=== PATIENT | female | born 2000 | race Caucasian/White ===

== ENCOUNTER 2020-10-28 11:44 | Inpatient (IN) | payer OTHER ==
[~2020-10-28] VITALS: Ht 152.4 cm; Wt 84.4 kg
[2020-10-28] MEDS: LACTATED RINGERS 1,000 ML IV SCH (13:29)
[2020-10-28 14:29] LABS: BASOPHILS % 0.7 % (0.0-2.0); EOSINOPHILS % 0.6 % (0.0-5.0); HEMATOCRIT. 35.9 % (36.0-48.0); LYMPHOCYTES % 16.8 % (20.0-50.0); MEAN CORPUSCULAR HEMOGLOBIN 28.3 pg (28.0-32.0); MEAN CORPUSCULAR VOLUME 85.1 fL (81.0-99.0); MEAN PLATELET VOLUME 10.3 fl (7.4-10.4); MONOCYTES % 4.1 % (2.0-8.0); NEUTROPHILS % 77.8 % (40.0-76.0); PLATELET 197 x1000/uL (130-400); RED BLOOD CELL COUNT 4.23 mill/uL (4.2-5.4); RED CELL DISTRIBUTION WIDTH 13.1 % (11.6-14.6)
[2020-10-28 14:39] LABS: CLARITY URINE CLOUDY (CLEAR); COLOR URINE YELLOW (YELLOW); KETONES URINE NEGATIVE (NEGATIVE); LEUKOCYTE ESTERASE URINE 1+ (NEGATIVE); NITRITE URINE NEGATIVE (NEGATIVE); OCCULT BLOOD URINE TRACE (NEGATIVE); PROTEIN URINE 2+ (NEGATIVE); SPECIFIC GRAVITY URINE 1.023 (1.005-1.030)
[2020-10-28 14:40] LABS: CHLORIDE 106 mEq/L (98-107)
[2020-10-28 14:43] LABS: D-DIMER 2.2 mg/L FEU (<0.50); PARTIAL THROMBOPLASTIN TIME 26.5 sec (23.4-31.0); PROTHROMBIN TIME 10.3 sec (9.6-11.0)
[2020-10-28] MEDS ORDERED: LABETALOL HCL 5MG/ML VIAL 20ML IV PRN ×2 (14:45)
[2020-10-28 14:57] LABS: *AMPHETAMINES SCREEN URINE NEGATIVE (NEGATIVE); *BARBITURATES SCREEN URINE NEGATIVE (NEGATIVE); *BENZODIAZEPINES SCREEN URINE NEGATIVE (NEGATIVE); *COCAINE SCREEN URINE NEGATIVE (NEGATIVE)
[2020-10-28 14:58] LABS: CANNABINOID URINE SCREEN NEGATIVE (NEGATIVE); METHADONE URINE SCREEN NEGATIVE (NEGATIVE); OPIATES URINE SCREEN NEGATIVE (NEGATIVE); PHENCYCLIDINE URINE SCREEN NEGATIVE (NEGATIVE)
[2020-10-28] MEDS ORDERED: DEXT 5%/LR + PITOCIN 20UNITS/L 1,000 ML IV SCH (15:00)
[2020-10-28] MEDS ORDERED: MISOPROSTOL 200MCG TABLET VG SCH (15:00)
[2020-10-28] MEDS ORDERED: METHYLERGONOVINE MALEATE 0.2 MG/ML IM PRN (15:00)
[2020-10-28] MEDS ORDERED: CARBOPROST TROMETHAMINE 250 MCG/ML AMPUL IM PRN (15:00)
[2020-10-28] MEDS ORDERED: NALOXONE HCL 0.4 MG/ML 1ML VIAL IM PRN (15:00)
[2020-10-28] MEDS ORDERED: LACTATED RINGERS 1,000 ML IV SCH (15:00)
[2020-10-28] MEDS ORDERED: CITRIC ACID/SODIUM CITRATE SOLN 30ML UDC PO NR (15:00)
[2020-10-28] MEDS ORDERED: MORPHINE SULFATE/PF 1MG/ML 10ML AMP ONE (15:06)
[2020-10-28] MEDS ORDERED: EPHEDRINE SULFATE 50MG/ML VIAL ONE (15:06)
[2020-10-28] MEDS ORDERED: FENTANYL CITRATE/PF 50MCG/ML 2ML VIAL ONE (15:06)
[2020-10-28] MEDS ORDERED: ONDANSETRON HCL 4MG/2ML INJ ONE (15:06)
[2020-10-28] MEDS ORDERED: CEFAZOLIN SODIUM 1000MG/VIAL ONE (15:06)
[2020-10-28] MEDS ORDERED: OXYTOCIN 10 UNITS/ML 1ML ONE (15:06)
[2020-10-28 15:13] LABS: HEPATITIS B SURFACE ANTIGEN NEGATIVE
[2020-10-28] MEDS: MAGNESIUM 20 G PREMIX (L & D) 500 ML IV SCH (18:34)
[2020-10-28] MEDS ORDERED: MAGNESIUM 2 G PREMIX 50 ML IV NR (19:00)
[2020-10-28] MEDS ORDERED: DIPHENHYDRAMINE 50MG/ML VIAL ONE (19:25)
[2020-10-28] MEDS ORDERED: GLYCOPYRROLATE 0.2 MG/ML 2ML VIAL ONE (19:48)
[2020-10-28] MEDS ORDERED: KETOROLAC 60MG/2ML VIAL IM ONE (19:58)
[2020-10-28] MEDS ORDERED: DIPHENHYDRAMINE 50MG/ML VIAL IV PRN (20:00)
[2020-10-28] MEDS ORDERED: NALOXONE HCL 0.4 MG/ML 1ML VIAL IV PRN (20:00)
[2020-10-28] MEDS ORDERED: BUTORPHANOL TARTRATE 2 MG/ML VIAL IV PRN (20:00)
[2020-10-28] MEDS ORDERED: RHO(D) IMMUNE GLOBULIN 300 MCG/SYR IM PRN (20:30)
[2020-10-28] MEDS ORDERED: HYDROCODONE/ACETAMINOPHEN 5/325MG TABLET PO PRN (20:30)
[2020-10-28] MEDS ORDERED: IBUPROFEN 400MG TABLET PO PRN (20:30)
[2020-10-28] MEDS ORDERED: KETOROLAC 30MG/ML VIAL IV PRN (20:30)
[2020-10-28] MEDS ORDERED: BISACODYL 10MG SUPP PR PRN (20:30)
[2020-10-28] MEDS: DEXT 5%/LR + PITOCIN 20UNITS/L 1,000 ML IV SCH (20:30)
[2020-10-29] VITALS (10 sets, daily range): BP systolic 120–152; BP diastolic 72–93
[2020-10-29] MEDS: KETOROLAC 30MG/ML VIAL IV SCH ×3 (05:49→18:41)
[2020-10-29] MEDS: DEXT 5%/LR + PITOCIN 20UNITS/L 1,000 ML IV SCH (05:52)
[2020-10-29 09:08] LABS: BASOPHILS % 0.2 % (0.0-2.0); EOSINOPHILS % 0.2 % (0.0-5.0); HEMATOCRIT. 31.8 % (36.0-48.0); HEMOGLOBIN. 10.7 g/dL (12.0-16.0); LYMPHOCYTES % 7.7 % (20.0-50.0); MEAN CORPUSCULAR HEMOGLOBIN 28.5 pg (28.0-32.0); MEAN CORPUSCULAR VOLUME 84.8 fL (81.0-99.0); MEAN PLATELET VOLUME 9.7 fl (7.4-10.4); MONOCYTES % 4.3 % (2.0-8.0); NEUTROPHILS % 87.6 % (40.0-76.0); PLATELET 189 x1000/uL (130-400); RED BLOOD CELL COUNT 3.74 mill/uL (4.2-5.4); RED CELL DISTRIBUTION WIDTH 13.4 % (11.6-14.6)
[2020-10-29] MEDS: FERROUS SULFATE 325MG TABLET PO SCH ×2 (09:42→12:07)
[2020-10-29] MEDS: PRENATAL VIT/FE FUMARATE/FA TABLET PO SCH (09:43)
[2020-10-29] MEDS: MAGNESIUM 20 G PREMIX (L & D) 500 ML IV SCH (13:26)
[2020-10-30 03:00] VITALS: BP 135/92
[2020-10-30 07:40] LABS: BASOPHILS % 0.1 % (0.0-2.0); EOSINOPHILS % 1.3 % (0.0-5.0); HEMATOCRIT. 30.2 % (36.0-48.0); HEMOGLOBIN. 10.7 g/dL (12.0-16.0); LYMPHOCYTES % 9.2 % (20.0-50.0); MEAN CORPUSCULAR HEMOGLOBIN 29.4 pg (28.0-32.0); MEAN CORPUSCULAR VOLUME 83.5 fL (81.0-99.0); MEAN PLATELET VOLUME 9.3 fl (7.4-10.4); MONOCYTES % 3.5 % (2.0-8.0); NEUTROPHILS % 85.9 % (40.0-76.0); PLATELET 200 x1000/uL (130-400); RED BLOOD CELL COUNT 3.62 mill/uL (4.2-5.4); RED CELL DISTRIBUTION WIDTH 13.7 % (11.6-14.6)
[2020-10-30 08:00] VITALS: BP 137/88
[2020-10-30 12:00] VITALS: BP 128/90
[2020-10-30 16:00] VITALS: BP 134/92
[2020-10-30] MEDS ORDERED: GENTAMICIN 120MG PREMIX 100 ML IV SCH (16:30)
[2020-10-30 19:30] VITALS: BP 124/86
[2020-10-30] MEDS: LACTATED RINGERS 1,000 ML IV SCH (19:56)
[2020-10-30] MEDS: CLINDAMYCIN 900 MG in DEXTROSE 5% WATER 50 ML IV SCH (19:57)
[2020-10-30] MEDS: GENTAMICIN 120MG PREMIX 100 ML IV SCH (21:03)
[2020-10-30] MEDS: IBUPROFEN 800MG TABLET PO PRN (21:29)
[2020-10-31] VITALS (7 sets, daily range): BP systolic 134–156; BP diastolic 88–100
[2020-10-31] MEDS ORDERED: LACTATED RINGERS 1,000 ML IV SCH (02:00)
[2020-10-31] MEDS: CLINDAMYCIN 900 MG in DEXTROSE 5% WATER 50 ML IV SCH ×3 (04:00→22:28)
[2020-10-31] MEDS ORDERED: NALOXONE HCL 0.4MG/ML VIAL IV PRN (08:00)
[2020-10-31] MEDS: GENTAMICIN 120MG PREMIX 100 ML IV SCH ×2 (08:46→20:31)
[2020-10-31 09:12] LABS: BASOPHILS % 0.2 % (0.0-2.0); EOSINOPHILS % 1.3 % (0.0-5.0); HEMATOCRIT. 30.7 % (36.0-48.0); HEMOGLOBIN. 10.3 g/dL (12.0-16.0); LYMPHOCYTES % 11.9 % (20.0-50.0); MEAN CORPUSCULAR HEMOGLOBIN 29.1 pg (28.0-32.0); MEAN CORPUSCULAR VOLUME 86.9 fL (81.0-99.0); MEAN PLATELET VOLUME 9.2 fl (7.4-10.4); MONOCYTES % 4.3 % (2.0-8.0); NEUTROPHILS % 82.3 % (40.0-76.0); PLATELET 215 x1000/uL (130-400); RED BLOOD CELL COUNT 3.53 mill/uL (4.2-5.4); RED CELL DISTRIBUTION WIDTH 13.9 % (11.6-14.6)
[2020-10-31] MEDS ORDERED: IBUP-2030 MT (09:12)
[2020-10-31] MEDS ORDERED: MEASLES,MUMPS&RUBELLA VACCINE 1 VIAL SUBCUT ONE (10:00)
[2020-10-31] MEDS: FERROUS SULFATE 325MG TABLET PO SCH ×3 (10:13→18:05)
[2020-10-31] MEDS: PRENATAL VIT/FE FUMARATE/FA TABLET PO SCH (10:13)
[2020-10-31] MEDS: IBUPROFEN 800MG TABLET PO PRN (10:14)
[2020-10-31] MEDS: LABETALOL HCL 200MG TABLET PO SCH (13:16)
[2020-11-01] VITALS: BP 136/96
[2020-11-01] MEDS: LABETALOL HCL 200MG TABLET PO SCH (01:52)
[2020-11-01 03:52] LABS: CHLORIDE 109 mEq/L (98-107)
[2020-11-01 03:55] LABS: BASOPHILS % 0.1 % (0.0-2.0); EOSINOPHILS % 1.8 % (0.0-5.0); HEMATOCRIT. 30.8 % (36.0-48.0); HEMOGLOBIN. 10.5 g/dL (12.0-16.0); MEAN CORPUSCULAR VOLUME 84.8 fL (81.0-99.0); MEAN PLATELET VOLUME 8.9 fl (7.4-10.4); MONOCYTES % 3.7 % (2.0-8.0); NEUTROPHILS % 82.4 % (40.0-76.0); PLATELET 276 x1000/uL (130-400); RED BLOOD CELL COUNT 3.63 mill/uL (4.2-5.4); RED CELL DISTRIBUTION WIDTH 13.4 % (11.6-14.6)
[2020-11-01 04:00] LABS: GENTAMICIN RANDOM 0.6 ug/mL
[2020-11-01 04:09] VITALS: BP 138/97
[2020-11-01 07:30] VITALS: BP 144/95
[2020-11-01] MEDS: CLINDAMYCIN 900 MG in DEXTROSE 5% WATER 50 ML IV SCH (08:38)
[2020-11-01] MEDS ORDERED: GENTAMICIN 100MG PREMIX 50 ML IV SCH (12:00)
== END 2020-11-01 14:00 | disposition home or self-care (01) | DRG 540 ==
LOC: 8 EST LDRP 11:44 → OBSVTOIN 11:44 → 8EST 10-29 00:38
PROVIDERS: ADMIT Obstetrics & Gynecology; ATTEND Obstetrics & Gynecology
PROC: 10D00Z1 Extraction of Products of Conception, Low, Open Approach (ICD-10-PCS; principal; 2020-10-28)
DX: O13.4 Gestational [pregnancy-induced] hypertension without significant proteinuria, complicating childbirth (principal); O75.2 Pyrexia during labor, not elsewhere classified; O14.94 Unspecified pre-eclampsia, complicating childbirth; O34.211 Maternal care for low transverse scar from previous cesarean delivery; Z3A.36 36 weeks gestation of pregnancy; Z37.0 Single live birth
CPT/HCPCS: 36415; 80048; 80053; 80170; 80305; 81003; 83735; 84550; 85025; 85379; 85384; 86592; 86703; 86762; 86850; 86900; 87340; 88307; 90707; 99281; G0378; J0690; J1200; J1580; J1885; J2274; J2405; J2590; J3010; J3475; J3490; J7060; J7120; A4315